=== PATIENT | male | born 1970 | race Caucasian/White ===

== ENCOUNTER 2020-04-07 13:28 | Outpatient (REF) | payer OTHER, SELFPAY | END 2020-04-07 13:29 | disposition home or self-care (01) | LOC: HO.HAP 13:28 | PROVIDERS: Visit Provider Nurse Practitioner Family | DX: Z46.1 Encounter for fitting and adjustment of hearing aid (principal); H90.6 Mixed conductive and sensorineural hearing loss, bilateral | CPT/HCPCS: V5011; V5020; V5160; V5261; V5264; V5266 ==

== ENCOUNTER 2020-04-21 15:04 | Outpatient (REF) | payer SELFPAY | END 2020-04-21 15:05 | disposition home or self-care (01) | LOC: HO.HAP 15:04 | PROVIDERS: Visit Provider Nurse Practitioner Family | DX: Z13.89 Encounter for screening for other disorder (principal) ==

== ENCOUNTER 2020-06-01 15:41 | Outpatient (REF) | payer SELFPAY | END 2020-06-01 15:42 | disposition home or self-care (01) | LOC: HO.HAP 15:41 | PROVIDERS: Visit Provider Nurse Practitioner Family | DX: Z13.89 Encounter for screening for other disorder (principal) ==

== ENCOUNTER 2021-06-01 15:24 | Outpatient (REF) | payer OTHER, SELFPAY | END 2021-06-01 15:25 | disposition home or self-care (01) | LOC: HO.HAP 15:24 | PROVIDERS: Visit Provider Nurse Practitioner Family | DX: Z46.1 Encounter for fitting and adjustment of hearing aid (principal); H90.5 Unspecified sensorineural hearing loss | CPT/HCPCS: 92593; V5266; V5275 ==

== ENCOUNTER 2021-06-26 08:40 | Outpatient (REF) | payer OTHER, SELFPAY | END 2021-06-26 08:41 | disposition home or self-care (01) | LOC: HO.HAP 08:40 | PROVIDERS: Visit Provider Nurse Practitioner Family | DX: Z46.1 Encounter for fitting and adjustment of hearing aid (principal); H90.3 Sensorineural hearing loss, bilateral | CPT/HCPCS: V5264 ==

== ENCOUNTER 2021-12-27 08:37 | Outpatient (REF) | payer OTHER, SELFPAY | END 2021-12-27 08:38 | disposition home or self-care (01) | LOC: HO.HAP 08:37 | PROVIDERS: Visit Provider Nurse Practitioner Family | DX: Z46.1 Encounter for fitting and adjustment of hearing aid (principal); H90.3 Sensorineural hearing loss, bilateral | CPT/HCPCS: 92593; V5266 ==

== ENCOUNTER 2022-03-07 09:30 | Outpatient (REF) | payer OTHER, SELFPAY ==
--- NOTE | 2022-03-07 11:54 | MHC.AU.HFU ---
Hearing Instrument Follow-Up- Binaural Date of Visit: 03/07/22 Right Ear: Serial Number: Alisia Queen70 SP, SN [id number], velvet black Repair Warranty: 05/29/2023 Loss and Damage Warranty: 05/29/2023 Battery Size: 13 Type of Mold: Microsonic canal mold Dispensed By: [facility] Date of Fittin04/07/2020 Left Ear: Serial Number: Alisia Queen70 SP, SN [id number], velvet black Repair Warranty: 05/29/2023 Loss and Damage Warranty: 05/29/2023 Battery Size: 13 Type of Mold: Microsonic canal mold Dispensed By: [facility] Date of Fittin04/07/2020 Follow-Up Summary: The patient was seen today for a hearing aid check, accompanied by his who helped interpret in Slovak. The patient reports that for the past 3 weeks his right hearing aid is intermittent, stating the sound randomly cuts in and out. He also notes that this morning he can no longer hear from his left hearing aid. Otoscopy reveals clear ear canals. Visual inspection of the hearing aids was unremarkable. I re-tubed the ear molds as they were hardened. Listening check reveals the right hearing aid is producing adequate output. I did not observe intermittency in office. The left hearing aid is very weak and it appears to be the tone hook but there were no replacements available in office. Therefore, I recommended that we send out both hearing aids to [facility] for repair under warranty. The patient agreed. I programmed loaner Phonak Alexandra M-SP trial hearing aids for the patient, coupled to his ear molds and programmed to his settings. The patient reported good volume with the loaners and signed the loaner agreement. I explained that once the hearing aids are back from repair, our clinic will contact him to schedule an appointment and at that time he will return the loaners. At that visit the patient would like new impressions taken for new ear molds. Diagnosis Code(s): Primary Diagnosis: H90.3 Bilateral Sensorineural Hearing Loss Signature: Provider: Sariah Horner, [facility]
== END 2022-03-07 09:31 | disposition home or self-care (01) ==
LOC: HO.HAP 09:30
PROVIDERS: Visit Provider Nurse Practitioner Family
DX: Z46.1 Encounter for fitting and adjustment of hearing aid (principal); H90.3 Sensorineural hearing loss, bilateral
CPT/HCPCS: V5266

== ENCOUNTER 2022-03-27 08:05 | Outpatient (REF) | payer OTHER, SELFPAY ==
--- NOTE | 2022-03-27 11:47 | MHC.AU.HFU ---
Hearing Instrument Follow-Up- Binaural Date of Visit: 03/27/22 Right Ear: Phonak Alexandra M70 SP, SN [id number], velvet black Repair Warranty: 05/29/2023 Loss and Damage Warranty: 05/29/2023= Battery Size: 13 Type of Mold: Microsonic canal mold Dispensed By: [facility] Date of Fittin04/07/2020 Left Ear: Phonak Alexandra M70 SP, SN [id number], velvet black Repair Warranty: 05/29/2023 Loss and Damage Warranty: 05/29/2023 Battery Size: 13 Type of Mold: Microsonic canal mold Dispensed By: [facility] Date of Fittin04/07/2020 Follow-Up Summary: The patient is here to forklift picker his repaired Phonak Alexandra M70-SP BTE hearing aids. Hearing aids were programmed to user settings. The patient returned the loaner Phonak Alexandra M-SP Trial BTE hearing aids. The patient's existing ear molds were coupled to his aids. Listening check was good. Feedback district service manager was re-run. Patient reported good sound bilaterally. He requested new ear molds as his are bothering him. Impressions were taken bilaterally without incident. He would like the exact same style and material (canal style, M2000 material). Once they arrive, the patient will be contacted for an ear mold fitting. No other questions or concerns reported. MELBA faxed to [facility]. Diagnosis Code(s): Primary Diagnosis: H90.3 Bilateral Sensorineural Hearing Loss Signature: Provider: Sariah Horner, [facility]
== END 2022-03-27 08:06 | disposition home or self-care (01) ==
LOC: HO.HAP 08:05
PROVIDERS: Visit Provider Nurse Practitioner Family
DX: Z46.1 Encounter for fitting and adjustment of hearing aid (principal); H90.3 Sensorineural hearing loss, bilateral
CPT/HCPCS: V5275

== ENCOUNTER 2022-04-24 08:24 | Outpatient (REF) | payer OTHER, SELFPAY ==
--- NOTE | 2022-04-24 08:55 | MHC.AU.HFU ---
Hearing Instrument Follow-Up- Binaural Date of Visit: 04/24/22 Right Ear: Phonak Alexandra M70 SP, SN [id number], velvet black Repair Warranty: 05/29/2023 Loss and Damage Warranty: 05/29/2023 Battery Size: 13 Type of Mold: Microsonic canal mold Dispensed By: [facility] Date of Fittin04/07/2020 Left Ear: Phonak Alexandra M70 SP, SN [id number], velvet black Repair Warranty: 05/29/2023 Loss and Damage Warranty: 05/29/2023 Battery Size: 13 Type of Mold: Microsonic canal mold Dispensed By: [facility] Date of Fittin04/07/2020 Follow-Up Summary: The patient is here for an ear mold fitting. New ear molds fit well bilaterally, no feedback noted. The patient reported a comfortable fit and was able to insert/remove the new molds with ease. Billed to insurance. The patient will return as needed for a hearing aid check. Diagnosis Code(s): Primary Diagnosis: H90.3 Bilateral Sensorineural Hearing Loss Signature: Provider: Sariah Horner, CCC-A
== END 2022-04-24 08:25 | disposition home or self-care (01) ==
LOC: HO.HAP 08:24
PROVIDERS: Visit Provider Nurse Practitioner Family
DX: Z46.1 Encounter for fitting and adjustment of hearing aid (principal); H90.3 Sensorineural hearing loss, bilateral
CPT/HCPCS: V5264

== ENCOUNTER 2022-08-17 09:59 | Outpatient (REF) | payer OTHER, SELFPAY | END 2022-08-17 10:00 | disposition home or self-care (01) | LOC: HO.HAP 09:59 | PROVIDERS: Visit Provider Nurse Practitioner Family | DX: Z46.1 Encounter for fitting and adjustment of hearing aid (principal); H90.3 Sensorineural hearing loss, bilateral | CPT/HCPCS: V5266 ==

== ENCOUNTER 2022-12-25 08:30 | Outpatient (REF) | payer OTHER, SELFPAY | END 2022-12-25 08:31 | disposition home or self-care (01) | LOC: HO.HAP 08:30 | PROVIDERS: Visit Provider Nurse Practitioner Family | DX: Z46.1 Encounter for fitting and adjustment of hearing aid (principal); H90.3 Sensorineural hearing loss, bilateral | CPT/HCPCS: V5266 ==

== ENCOUNTER 2023-01-02 09:57 | Outpatient (REF) | payer OTHER, SELFPAY ==
--- NOTE | 2023-01-03 09:51 | MHC.AU.HA3 ---
Hearing Instrument Follow-Up- Binaural Date of Visit: 01/02/23 Right Ear: Juan David, Model, Color, Serial Number: Alisia Morris M70-SP SN: [id number] Color: Black Debt Collection Specialist Repair Warranty: 05/29/2023 Debt Collection Specialist Loss and Damage Warranty: 05/29/2023 Battery Size: 13 Earmold/Dome/CShell/SlimTip:Microsonic medi-renita canal mold Dispensed By: [facility] Date of Fittin04/07/2020 Left Ear: Juan David, Model, Color, Serial Number: Alisia Queen70-SP SN: [id number] Color: Black Debt Collection Specialist Repair Warranty: 05/29/2023 Debt Collection Specialist Loss and Damage Warranty: 05/29/2023 Battery Size: 13 Earmold/Dome/CShell/SlimTip: Microsonic medi-renita canal mold Dispensed By: [facility] Date of Fittin04/07/2020 Follow-Up Summary: Eliseo reported that his hearing aids have been intermittent and the left hearing aid is weak. He also reported that the ear molds have wax build up that he cannot clean off and it is causing a rash/itchiness in his right ear. Tubing extremely hard. Cleaned hearing aids and earmolds. Vacuumed microphones and ran through dehumidifier. A listening check demonstrated hearing aids are working well. However, after cleaning and tubing change, Eliseo reported left hearing aid still sounds weak. Discussed possible change in hearing and recommended updated hearing test. Ear molds appear to be covered in layer of wax build up that would not clean off. Eliseo reported that he likes this style and material of ear mold and they otherwise fit well. Called [employer] and reordered new ear molds using impressions on file. Recommendations: Patient will be contacted when materials have arrived. Recommendations (Other): Eliseo will obtain a doctor's order for an updated hearing test due to possible change in hearing in his left ear. Diagnosis Code(s): Primary Diagnosis: H90.3 Bilateral Sensorineural Hearing Loss Signature: Provider: Rodney Salinas, [facility]
== END 2023-01-02 09:58 | disposition home or self-care (01) ==
LOC: HO.HAP 09:57
PROVIDERS: Visit Provider Nurse Practitioner Family
DX: Z46.1 Encounter for fitting and adjustment of hearing aid (principal); H90.3 Sensorineural hearing loss, bilateral
CPT/HCPCS: 92593; 99499

== ENCOUNTER 2023-02-27 09:55 | Outpatient (REF) | payer OTHER, SELFPAY | END 2023-02-27 09:56 | disposition home or self-care (01) | LOC: HO.HAP 09:55 | PROVIDERS: Visit Provider Nurse Practitioner Family | DX: Z46.1 Encounter for fitting and adjustment of hearing aid (principal); H90.3 Sensorineural hearing loss, bilateral | CPT/HCPCS: V5264; V5266 ==

== ENCOUNTER 2023-03-26 08:10 | Outpatient (REF) | payer OTHER, SELFPAY ==
--- NOTE | 2023-03-26 08:51 | MHC.AU.HA3 ---
Hearing Instrument Follow-Up- Binaural Date of Visit: 03/26/23 Right Ear: Juan David, Model, Color, Serial Number: Alisia Morris M70-SP SN: [id number] Color: Black Board Of Education Secretary Repair Warranty: 05/29/2023 Board Of Education Secretary Loss and Damage Warranty: 05/29/2023 Battery Size: 13 Earmold/Dome/CShell/SlimTip:Microsonic medi-renita canal mold Dispensed By: [facility] Date of Fittin04/07/2020 Left Ear: Juan David, Model, Color, Serial Number: Alisia Morris M70-SP SN: [id number] Color: Black Board Of Education Secretary Repair Warranty: 05/29/2023 Board Of Education Secretary Loss and Damage Warranty: 05/29/2023 Battery Size: 13 Earmold/Dome/CShell/SlimTip: Microsonic medi-renita canal mold Dispensed By: [facility] Date of Fittin04/07/2020 Follow-Up Summary: Eliseo reported that since fitting his new ear molds, the right hearing aid whistles, especially when he is watching TV or listening to music/any type of louder noise. Reran feedback analyzer for right hearing aid. No feedback noted in office. Eliseo has a hearing test scheduled on 05/03/2023 - will follow up with this issue if problem persists at that appointment. Recommendations: Hearing instrument follow-up or maintenance as needed. Please contact our clinic with any questions or concerns. Patient will call if problems persist. Diagnosis Code(s): Primary Diagnosis: H90.3 Bilateral Sensorineural Hearing Loss Signature: Provider: Rodney Salinas, [facility]
== END 2023-03-26 08:11 | disposition home or self-care (01) ==
LOC: HO.HAP 08:10
PROVIDERS: Visit Provider Nurse Practitioner Family
DX: Z13.89 Encounter for screening for other disorder (principal)

== ENCOUNTER 2023-05-03 08:22 | Outpatient (REF) | payer OTHER, SELFPAY ==
--- NOTE | 2023-05-03 13:46 | MHC.AU.HA3 ---
Hearing Instrument Follow-Up- Binaural Date of Visit: 05/03/23 Right Ear: Juan David, Model, Color, Serial Number: Alisia Morris M70-SP SN: [id number] Color: Black Claim Manager Repair Warranty: 05/29/2023 Claim Manager Loss and Damage Warranty: 05/29/2023 [facility] Service Plan: Battery Size: 13 Diploma Medical Assistant/Slim Tube: Earmold/Dome/CShell/SlimTip:Microsonic medi-renita canal mold Type of Wax Guard: Dispensed By: [facility] Date of Fittin04/07/2020 Left Ear: Juan David, Model, Color, Serial Number: Alisia Morris M70-SP SN: [id number] Color: Black Claim Manager Repair Warranty: 05/29/2023 Claim Manager Loss and Damage Warranty: 05/29/2023 [facility] Service Plan: Battery Size: 13 Diploma Medical Assistant/Slim Tube: Earmold/Dome/CShell/SlimTip: Microsonic medi-renita canal mold Type of Wax Guard: Dispensed By: [facility] Date of Fittin04/07/2020 Follow-Up Summary: Eliseo visited for an updated hearing test and hearing aid maintenance. He reports his earmolds irritate his canals and he feels like the material of these molds is the issue. Cleaned and retubed, found tubes to be cracked at locks and earmolds both have significant buildup that will not come off, similar to the notes from a previous cleaning. Ordered new earmolds in M2000 rather than medi-renita. Recommended having PCP check ears for sign of infection at his upcoming appointment as there was white debris deep in both canals and he reports persistent itching. Increased gain in left aid for better balance. Will call once new earmolds arrive. Recommendations: Recommendations: Patient will be contacted when materials have arrived. Diagnosis Code(s): Primary Diagnosis: H90.3 Bilateral Sensorineural Hearing Loss Signature: Provider: Sariah Mcdaniels, CCC-A
== END 2023-05-03 08:23 | disposition home or self-care (01) ==
LOC: HO.SH 08:22
PROVIDERS: Visit Provider Student in an Organized Health Care Education/Training Program
DX: Z01.118 Encounter for examination of ears and hearing with other abnormal findings (principal); Z46.1 Encounter for fitting and adjustment of hearing aid; H90.6 Mixed conductive and sensorineural hearing loss, bilateral
CPT/HCPCS: 92553; 92567; 92593; 99499; V5266

== ENCOUNTER 2023-05-24 10:31 | Outpatient (REF) | payer OTHER, SELFPAY ==
--- NOTE | 2023-05-24 12:16 | MHC.AU.HA3 ---
Hearing Instrument Follow-Up- Binaural Date of Visit: 05/24/23 Right Ear: Juan David, Model, Color, Serial Number: Alisia Morris M70-SP SN: [id number] Color: Black Debt Recovery Officer Repair Warranty: 05/29/2023 Debt Recovery Officer Loss and Damage Warranty: 05/29/2023 [facility] Service Plan: Battery Size: 13 Recruiting Intern/Slim Tube: Earmold/Dome/CShell/SlimTip:Microsonic medi-renita canal mold Type of Wax Guard: Dispensed By: [facility] Date of Fittin04/07/2020 Left Ear: Juan David, Model, Color, Serial Number: Alisia Morris M70-SP SN: [id number] Color: Black Debt Recovery Officer Repair Warranty: 05/29/2023 Debt Recovery Officer Loss and Damage Warranty: 05/29/2023 [facility] Service Plan: Battery Size: 13 Recruiting Intern/Slim Tube: Earmold/Dome/CShell/SlimTip: Microsonic medi-renita canal mold Type of Wax Guard: Dispensed By: [facility] Date of Fittin04/07/2020 Follow-Up Summary: Dispensed new earmolds. Fit looks good. Good subjective comfort and benefit reported. Recommendations: Recommendations: Hearing instrument maintenance in 6 months, or sooner if needed. Please contact our clinic with any questions or concerns. Diagnosis Code(s): Primary Diagnosis: H90.3 Bilateral Sensorineural Hearing Loss Signature: Provider: Rodney Hogue, CCC-A
== END 2023-05-24 10:32 | disposition home or self-care (01) ==
LOC: HO.HAP 10:31
PROVIDERS: Visit Provider Nurse Practitioner Family
DX: Z46.1 Encounter for fitting and adjustment of hearing aid (principal); H90.3 Sensorineural hearing loss, bilateral
CPT/HCPCS: V5264

== ENCOUNTER 2023-07-15 09:02 | Outpatient (REF) | payer OTHER, SELFPAY | END 2023-07-15 09:03 | disposition home or self-care (01) | LOC: HO.HAP 09:02 | PROVIDERS: Visit Provider Nurse Practitioner Family | DX: Z46.1 Encounter for fitting and adjustment of hearing aid (principal); H90.3 Sensorineural hearing loss, bilateral | CPT/HCPCS: V5266 ==

== ENCOUNTER 2023-09-18 10:34 | Outpatient (REF) | payer OTHER, SELFPAY | END 2023-09-18 10:35 | disposition home or self-care (01) | LOC: HO.HAP 10:34 | PROVIDERS: Visit Provider Nurse Practitioner Family | DX: Z46.1 Encounter for fitting and adjustment of hearing aid (principal); H90.3 Sensorineural hearing loss, bilateral | CPT/HCPCS: V5266 ==

== ENCOUNTER 2023-10-03 13:29 | Outpatient (REF) | payer OTHER, SELFPAY ==
--- NOTE | 2023-10-03 14:43 | MHC.AU.HA3 ---
Hearing Instrument Follow-Up- Binaural Date of Visit: 10/03/23 Right Ear: Juan David, Model, Color, Serial Number: Alisia Morris M70-SP SN: [id number] Color: Black Crop Production Advisor Repair Warranty: 05/29/2023 Crop Production Advisor Loss and Damage Warranty: 05/29/2023 [facility] Service Plan: Battery Size: 13 Field Pipelines Supervisor/Slim Tube: Earmold/Dome/CShell/SlimTip:Microsonic medi-renita canal mold Type of Wax Guard: Dispensed By: [facility] Date of Fittin04/07/2020 Left Ear: Juan David, Model, Color, Serial Number: Alisia Morris M70-SP SN: [id number] Color: Black Crop Production Advisor Repair Warranty: 05/29/2023 Crop Production Advisor Loss and Damage Warranty: 05/29/2023 [facility] Service Plan: Battery Size: 13 Field Pipelines Supervisor/Slim Tube: Earmold/Dome/CShell/SlimTip: Microsonic medi-renita canal mold Type of Wax Guard: Dispensed By: [facility] Date of Fittin04/07/2020 Follow-Up Summary: Pt reports RHA stopped working this morning. Inspection shows moisture in damper. Changed both tone hooks, tubes, cleaned molds and hearing aids. Listening check ok, pt reports improved sound quality with both aids. Return as needed. Recommendations: Recommendations: Hearing instrument follow-up or maintenance as needed. Diagnosis Code(s): Primary Diagnosis: H90.3 Bilateral Sensorineural Hearing Loss Signature: Provider: Sariah Mcdaniels, CCC-A
== END 2023-10-03 13:30 | disposition home or self-care (01) ==
LOC: HO.HAP 13:29
PROVIDERS: Visit Provider Nurse Practitioner Family
DX: Z46.1 Encounter for fitting and adjustment of hearing aid (principal); H90.3 Sensorineural hearing loss, bilateral
CPT/HCPCS: 92593; 99499

== ENCOUNTER 2023-12-06 14:17 | Outpatient (REF) | payer OTHER, SELFPAY | END 2023-12-06 14:18 | disposition home or self-care (01) | LOC: HO.HAP 14:17 | PROVIDERS: Visit Provider Nurse Practitioner Family | DX: Z46.1 Encounter for fitting and adjustment of hearing aid (principal); H90.3 Sensorineural hearing loss, bilateral | CPT/HCPCS: V5266 ==

== ENCOUNTER 2024-03-31 14:10 | Outpatient (REF) | payer OTHER, SELFPAY ==
--- NOTE | 2024-03-31 14:36 | MHC.AU.HA3 ---
Hearing Instrument Follow-Up- Binaural Date of Visit: 03/31/24 Right Ear: Juan David, Model, Color, Serial Number: Alisia Morris M70-SP SN: [id number] Color: Black Turbo Electric Operator Repair Warranty: 05/29/2023 Turbo Electric Operator Loss and Damage Warranty: 05/29/2023 Battery Size: 13 Earmold/Dome/CShell/SlimTip:Microsonic medi-renita canal mold Dispensed By: [facility] Date of Fittin04/07/2020 Left Ear: Juan David, Model, Color, Serial Number: Alisia Morris M70-SP SN: [id number] Color: Black Turbo Electric Operator Repair Warranty: 05/29/2023 Turbo Electric Operator Loss and Damage Warranty: 05/29/2023 Battery Size: 13 Earmold/Dome/CShell/SlimTip: Microsonic medi-renita canal mold Dispensed By: [facility] Date of Fittin04/07/2020 Follow-Up Summary: Routine tubing change - tubing hard, discolored, full of moisture/wax, and slipping out of mold. Cleaned both HAs and EMs. Replaced tubing. Vacuumed microphones. Ran through dehumidifier. Listening check demonstrated HAs amplifying clearly. Recommendations: Hearing instrument follow-up or maintenance as needed. Please contact our clinic with any questions or concerns. Diagnosis Code(s): Primary Diagnosis: H90.3 Bilateral Sensorineural Hearing Loss Signature: Provider: Rodney Salinas, [facility]
== END 2024-03-31 14:11 | disposition home or self-care (01) ==
LOC: HO.HAP 14:10
PROVIDERS: Visit Provider Nurse Practitioner Family
DX: Z46.1 Encounter for fitting and adjustment of hearing aid (principal); H90.3 Sensorineural hearing loss, bilateral
CPT/HCPCS: 92593; 99499; V5266

== ENCOUNTER 2024-11-30 14:14 | Outpatient (REF) | payer OTHER, SELFPAY ==
--- NOTE | 2024-11-30 14:34 | MHC.AU.HA3 ---
Hearing Instrument Follow-Up- Binaural Date of Visit: 11/30/24 Right Ear: Juan David, Model, Color, Serial Number: Alisia Morris M70-SP SN: [id number] Color: Black Table Assembler Metal Repair Warranty: 05/29/2023 Table Assembler Metal Loss and Damage Warranty: 05/29/2023 [facility] Service Plan: 05/29/2023 Battery Size: 13 Earmold/Dome/CShell/SlimTip:Microsonic medi-renita canal mold Dispensed By: [facility] Date of Fittin04/07/2020 Left Ear: Juan David, Model, Color, Serial Number: Alisia Morris M70-SP SN: [id number] Color: Black Table Assembler Metal Repair Warranty: 05/29/2023 Table Assembler Metal Loss and Damage Warranty: 05/29/2023 [facility] Service Plan: 05/29/2023 Battery Size: 13 Earmold/Dome/CShell/SlimTip: Microsonic medi-renita canal mold Dispensed By: [facility] Date of Fittin04/07/2020 Follow-Up Summary: [facility] for [facility], accompanied by who helped with interpreting. Reports tubes are hard, tone hooks loose, getting feedback. Cleaned aids and ran through dehumidifier (2). Tubes hard, moisture in tubes. Cleaned earmolds (2). [place] (2). [place] [address] 6 units. Listening check positive. Eliseo reports improvement. Recommendations: Recommendations: Hearing instrument maintenance in 6 months, or sooner if needed. Diagnosis Code(s): Primary Diagnosis: H90.3 Bilateral Sensorineural Hearing Loss Signature: Provider: Rodney Hogue, [facility]
--- OUTSIDE RECORDS SUMMARY | 2024-11-30 15:43 | XMS_ITS | Clinical Summary ---
Author Organization [facility] Address [address] [place] [address] Care Team Providers Care Business Administration Instructor Name Role Phone Yuliya Wong MD Primary Care Provider [phone] Surgical History Surgery Date Site/Laterality Comments KNEE SURGERY 2007 Right PROCEDURE: HISTORICAL KNEE SURGERY; COMMENT: arthroscopy ELBOW SURGERY 2010 Right PROCEDURE: HISTORICAL ELBOW SURGERY; COMMENT: lump removed from tip of elbow, ?bursa TONSILLECTOMY PROCEDURE: HISTORICAL TONSILLECTOMY Medical History Medical History Date Comments Hand eczema 01/29/2018 DX:Hand eczema Hyperlipidemia 01/29/2018 DX:Hyperlipidemi a Bilateral hearing loss 01/29/2018 DX:Bilate ral hearing loss Chronic pain of right knee 01/29/2018 DX:Ch ronic pain of right knee Migraine with aura and witho ut status migrainosus, not intractable 01/29/2018 DX:Migraine with aura and without status migrainosus, not intractable; COMMENT: 12/28/16 seeing Neurology - started on maintenance medication. Lateral epicondylitis of right elbow 01/29/2018 DX:Lateral epicondylitis of right elbow Family History Medical History Relation Name Comments Colon cancer Aunt Maternal Asthma Daughter Allergic Rhinit is Coronary artery disease Father Diab etes,Hyperlipidemia, age 87 with dementia Colon cancer Mother Diabetes Other: hearing loss Sister 2 sister s had cochlear implants for hearing loss Other: Prostate cancer Uncle Maternal Relation Name Status Comments Aunt Maternal Daughter Father Mother Alive Sister Alive Uncle Maternal Alive Social History Tobacco Use Types Packs/Day Years Used Date Smoking Tobacco: Former Cigarettes Smokeless Tobacco: Never Alcohol Use Standard Drinks/Week Comments Yes 0 (1 standard drink = 0.6 oz pur e alcohol) Sex and Gender Information Value Date Recorded Sex Assigned at Not on file Legal Sex Male 5:44 AM EST Gender Identity Not on file Sexual Orientation Not on file Obstetrics History Plan of Treatment Health Maintenance Due Date Last Done Comments Hepatitis B Vaccines (1 of 3 - 19+ 3-dose series) 1989 Pneumococcal Vaccine: 50+ Years (1 of 1 - PCV) 2020 Zoster Vaccines (1 of 2) 2020 Cholesterol Screening (Lipid Panel) 03/11/2022 Colorectal Cancer Screening: Colonoscopy 03/11/2022 HIV Screening 03/11/2022 Hepatitis C Screening 03/11/2022 Social Influencers of Health Screening 03/11/2022 COVID-19 Vaccine (3 - 2023-2 5 season) 2023 09/15/2020, 08/18/2020 Depression Screening 04/08/2024 Influenza Vaccine (#1) 2024 03/24/2018 DTaP,Tdap,and Td Vaccines (4 - Td or Tdap) 09/09/2033 09/10/2023, 05/25/2020, 06/29/2009 HIB Vaccines Aged Out No longer eligi ble based on patient's age to complete this topic HPV Vaccines Aged Out No longer eligi ble based on patient's age to complete this topic Hepatitis A Vaccines Aged Out No long er eligible based on patient's age to complete this topic IPV Vaccines Aged Out No longer eligi ble based on patient's age to complete this topic MMR Vaccines Aged Out No longer eligi ble based on patient's age to complete this topic Meningococcal ACWY Vaccine Aged Out N o longer eligible based on patient's age to complete this topic Meningococcal B Vaccine Aged Out No l onger eligible based on patient's age to complete this topic RSV Immunization Patients Under 20 months Aged Out No longer eligible b ased on patient's age to complete this topic Varicella Vaccines Aged Out No longer eligible based on patient's age to complete this topic Care Teams Business Administration Instructor Relationship Specialty Start Date End Date Yuliya Wong MD PCP - General Internal Medicine 12/25/17
== END 2024-11-30 14:15 | disposition home or self-care (01) ==
LOC: HO.HAP 14:14
PROVIDERS: Visit Provider Nurse Practitioner Family
DX: Z46.1 Encounter for fitting and adjustment of hearing aid (principal); H90.3 Sensorineural hearing loss, bilateral
CPT/HCPCS: 92593; 99499